=== PATIENT | female | born 1995 | race Caucasian/White ===

== ENCOUNTER 2022-10-02 10:15 | Emergency (ER) | payer MEDICAID ==
[~2022-10-02] VITALS: Ht 172.7 cm; Wt 109.0 kg
[2022-10-02] MEDS ORDERED: IBUPROFEN 600MG TABLET PO STA (12:20)
[2022-10-02 12:33] VITALS: BP 130/79
[2022-10-02] MEDS ORDERED: IBUP-2029 MT (12:51)
== END 2022-10-02 13:09 | disposition home or self-care (01) ==
LOC: ER 10:15
DX: R07.89 Other chest pain (principal)
CPT/HCPCS: 71045; 81025; 93005; 99283

== ENCOUNTER 2024-08-25 01:07 | Emergency (ER) | payer MEDICAID ==
[~2024-08-25] VITALS: Ht 167.6 cm; Wt 109.0 kg
[~2024-08-25 01:07] MED LIST: IBUP-2029 MT
[2024-08-25 01:32] VITALS: BP 118/78; PULSE 88; RESP 18; TEMP 98.8; O2SAT 100
[2024-08-25] MEDS ORDERED: OFLO5DRO4 RIGHT EAR (01:36)
[2024-08-25] MEDS ORDERED: HYDR-4001 MT (20:00)
== END 2024-08-25 01:44 | disposition home or self-care (01) ==
LOC: ER 01:17
DX: H60.91 Unspecified otitis externa, right ear (principal); H92.01 Otalgia, right ear
CPT/HCPCS: 99283

== ENCOUNTER 2024-08-25 16:43 | Emergency (ER) | payer MEDICAID, OTHER ==
[~2024-08-25] VITALS: Ht 172.7 cm; Wt 110.0 kg
[~2024-08-25 16:43] MED LIST changes: +OFLO5DRO4 RIGHT EAR
[2024-08-25 16:50] VITALS: BP 137/87; PULSE 87; RESP 18; TEMP 98.9; O2SAT 100
[2024-08-25] MEDS: IBUPROFEN 400MG TABLET PO ONE (18:00)
[2024-08-25] MEDS: HYDROCODONE/ACETAMINOPHEN 5/325MG TABLET PO ONE (18:00)
[2024-08-25] MEDS ORDERED: ONDANSETRON 4MG ODT PO ONE (20:00)
[2024-08-25] MEDS ORDERED: HYDR-4001 MT (20:00)
== END 2024-08-25 20:38 | disposition home or self-care (01) ==
LOC: ER 16:43
DX: H60.91 Unspecified otitis externa, right ear (principal)
CPT/HCPCS: 99283; Z7610

== ENCOUNTER 2024-11-17 01:05 | Emergency (ER) | payer MEDICAID ==
[~2024-11-17] VITALS: Ht 170.2 cm; Wt 141.0 kg
[~2024-11-17 01:05] MED LIST changes: +HYDR-4001 MT
[2024-11-17 01:10] VITALS: BP 129/79; PULSE 81; RESP 18; TEMP 98.5; O2SAT 99
[2024-11-17] MEDS: FAMOTIDINE 20MG TABLET PO STA (01:38)
[2024-11-17] MEDS: MAGNESIUM/ALUMINUM HYDROXIDE/SIMETHICONE 30ML UDC PO STA (01:38)
[2024-11-17 02:34] LABS: EOSINOPHILS % 3.1 % (0.0-5.0); HEMATOCRIT. 43.2 % (36.0-48.0); HEMOGLOBIN. 14.5 g/dL (12.0-16.0); LYMPHOCYTES % 33.5 % (20.0-50.0); MEAN CORPUSCULAR HEMOGLOBIN 29.2 pg (28.0-32.0); MEAN CORPUSCULAR HGB CONC 33.5 g/dL (31.0-37.0); MEAN PLATELET VOLUME 8.3 fl (7.4-10.4); MONOCYTES % 7.7 % (2.0-8.0); NEUTROPHILS % 54.7 % (40.0-76.0); PLATELET 405 x1000/uL (130-400); RED BLOOD CELL COUNT 4.96 mill/uL (4.2-5.4); RED CELL DISTRIBUTION WIDTH 14.3 % (11.6-14.6)
[2024-11-17 02:42] LABS: CHLORIDE 106 mEq/L (98-107); POTASSIUM 3.7 mEq/L (3.5-5.1); SODIUM 140 mEq/L (136-145)
[2024-11-17 02:43] LABS: CALCIUM 9.1 mg/dL (8.7-10.4); CARBON DIOXIDE 24 mEq/L (21-32)
[2024-11-17 02:48] LABS: ALANINE AMINOTRANSFERASE 42 IU/L (10-49); ALBUMIN 4.2 g/dL (3.2-4.8); ASPARTATE AMINOTRANSFERASE 23 IU/L (<34); BILIRUBIN DIRECT 0.1 mg/dL (<=3.0); BILIRUBIN TOTAL 0.4 mg/dL (0.1-1.0); CREATININE 0.9 mg/dL (0.6-1.0); GLUCOSE 110 mg/dL (70-105); PROTEIN TOTAL 7.1 g/dL (6.0-8.3); UREA NITROGEN BLOOD 15 mg/dL (9-23)
[2024-11-17 03:02] LABS: TROPONIN I HIGH SENSITIVITY < 4 ng/L (3.0-34)
[2024-11-17 03:08] LABS: HCG SCREEN NEGATIVE
[2024-11-17 03:18] LABS: CLARITY URINE CLOUDY (CLEAR); COLOR URINE YELLOW (YELLOW); GLUCOSE URINE NEGATIVE (NEGATIVE); KETONES URINE NEGATIVE (NEGATIVE); LEUKOCYTE ESTERASE URINE 1+ (NEGATIVE); NITRITE URINE NEGATIVE (NEGATIVE); OCCULT BLOOD URINE NEGATIVE (NEGATIVE); PROTEIN URINE TRACE (NEGATIVE)
[2024-11-17] MEDS: MAGNESIUM/ALUMINUM HYDROXIDE/SIMETHICONE 30ML UDC PO NR (03:45)
[2024-11-17] MEDS: FAMOTIDINE 20MG TABLET PO NR (03:45)
[2024-11-17 04:07] LABS: SQUAMOUS EPITHELIAL CELL URINE 1+ /lpf (RARE/1+)
[2024-11-17 04:08] LABS: RBC URINE 0-2 /hpf (0-2); WBC URINE 0-2 /hpf (0-2)
[2024-11-17 04:09] LABS: BACTERIA URINE NONE SEEN
== END 2024-11-17 03:59 | disposition home or self-care (01) ==
LOC: ER 01:44
DX: R07.89 Other chest pain (principal); R06.02 Shortness of breath; E66.9 Obesity, unspecified
CPT/HCPCS: 36415; 71045; 80048; 80076; 81003; 83880; 84484; 84703; 85025; 93005; 99285

== ENCOUNTER 2025-03-01 19:38 | Emergency (ER) | payer MEDICAID, OTHER ==
[~2025-03-01] VITALS: Ht 167.6 cm; Wt 140.0 kg
[2025-03-01 19:40] VITALS: O2SAT 98
[2025-03-01 19:44] VITALS: BP 134/82; PULSE 100; RESP 18; TEMP 36.5; O2SAT 96
[2025-03-01 20:11] LABS: BASOPHILS % 0.7 % (0.0-2.0); EOSINOPHILS % 3.9 % (0.0-5.0); HEMATOCRIT. 43.2 % (36.0-48.0); HEMOGLOBIN. 14.4 g/dL (12.0-16.0); MEAN CORPUSCULAR HEMOGLOBIN 28.5 pg (28.0-32.0); MEAN CORPUSCULAR HGB CONC 33.3 g/dL (31.0-37.0); MEAN CORPUSCULAR VOLUME 85.5 fL (81.0-99.0); MEAN PLATELET VOLUME 7.9 fl (7.4-10.4); MONOCYTES % 6.7 % (2.0-8.0); NEUTROPHILS % 60.7 % (40.0-76.0); PLATELET 425 x1000/uL (130-400); RED BLOOD CELL COUNT 5.05 mill/uL (4.2-5.4); RED CELL DISTRIBUTION WIDTH 14.1 % (11.6-14.6); WHITE BLOOD COUNT 12.3 x1000/uL (4.5-11.0)
[2025-03-01 20:17] LABS: CARBON DIOXIDE 29 mEq/L (21-32); CHLORIDE 105 mEq/L (98-107); SODIUM 140 mEq/L (136-145)
[2025-03-01 20:18] LABS: CALCIUM 9.5 mg/dL (8.7-10.4)
[2025-03-01 20:22] LABS: CREATININE 0.9 mg/dL (0.6-1.0)
[2025-03-01 20:23] LABS: GLUCOSE 135 mg/dL (70-105); UREA NITROGEN BLOOD 15 mg/dL (9-23)
[2025-03-01 20:45] LABS: HCG SCREEN NEGATIVE
== END 2025-03-01 20:41 | disposition home or self-care (01) ==
LOC: ER 19:38
DX: R06.02 Shortness of breath (principal); F10.90 Alcohol use, unspecified, uncomplicated; Y90.9 Presence of alcohol in blood, level not specified
CPT/HCPCS: 36415; 71045; 80048; 84703; 85025; 99284